=== PATIENT | male | born 1990 ===

== ENCOUNTER 2022-02-12 08:12 | Emergency (ER) | payer OTHER, SELFPAY ==
[2022-02-12 08:18] VITALS: BP 140/88; PULSE 76; RESP 18; TEMP 36.6; O2SAT 98; BMI 25.9
--- NOTE | 2022-02-12 09:09 | ED.GENADULT ---
HPI - General Adult General Chief complaint: General Medical Stated complaint: spider bite Time Seen by Provider: 02/12/22 09:09 Source: patient Mode of arrival: ambulatory Limitations: no limitations History of Present Illness HPI narrative: Patient is a 31 year old male presenting to the emergency department today with a rash to his left torso. Patient states that for the last 3 days he has had a burning rash to his left axilla. Patient states that before this started, he killed a spider and he was worried that it was a bite from that. Patient denies any dizziness, lightheadedness, abdominal pain, nausea, vomiting, fever, chills, blurry vision, double vision, loss of vision, chest pain, difficulty breathing, shortness of breath, back pain, night sweats, pain with urination, increased urinary frequency, increased urinary urgency, blood in his urine or stool, syncope or a near syncopal episode, recent trauma or falls, bowel incontinence, bladder incontinence, bowel retention, bladder retention, or any other complaints at this time. Onset (ago): day(s) (3) Location: chest (left) Radiation: non-radiation Severity: mild Severity scale (1-10): 3 Quality: burning Pain Consistency: constant Relieving factors: none Exacerbating factors: none Associated symptoms: rash Treatments prior to arrival: none Related Data Previous Rx's Medication Instructions Recorded acyclovir 800 mg tablet 800 mg PO 5XD 7 days #35 tabs 02/12/22 Allergies Allergy/AdvReac Type Severity Reaction Status Date / Time No Known Allergies Allergy Unverified 05/19/20 19:20 [No Known Allergies*] Review of Systems Constitutional: Constitutional: Reports no additional constitutional complaints, Denies chills, Denies fever(s) and Denies night sweats Eyes: Eyes: Reports no additional eye complaints, Denies blurry vision, Denies change in vision, Denies diplopia, Denies eye discharge, Denies loss of vision and Denies eye pain ENT: Denies dizziness Cardiovascular: Cardiovascular: Reports no additional cardiovascular complaints, Denies chest pain, Denies lightheadedness, Denies Loss of Consciousness and Denies dyspnea Respiratory: Respiratory: Reports no additional respiratory complaints and Denies dyspnea Gastrointestinal: Gastrointestinal: Reports no additional gastrointestinal complaints, Denies abdominal pain, Denies melena, Denies hematochezia, Denies change in bowel habits and Denies change in stool character Genitourinary: Genitourinary: Reports no additional male genitourinary complaints, Denies hematuria, Denies oliguria, Denies difficulty urinating, Denies dysuria, Denies urinary frequency, Denies urinary hesitancy, Denies urinary incontinence and Denies urinary urgency Musculoskeletal: Musculoskeletal: Reports no additional musculoskeletal complaints, Denies numbness and Denies tingling Integumentary/Breasts: Skin/Breast: Reports rash (left side of torso) Neurologic: Denies dizziness, Denies loss of vision, Denies numbness and Denies tingling Psychiatric: Psychiatric: Reports no additional psychiatric complaints Endocrine: Endocrine: Reports no additional endocrine complaints Hematologic/Lymphatic: Hematologic/Lymphatic: Reports no additional hematologic/lymphatic complaints Allergic/Immunologic: Allergic/Immunologic: Reports no additional allergic/immunologic complaints [facility] Past Medical History Attestation statement: The following information was validated with the patient. Source: old records reviewed Social History Social History Advance Directives: No Advance Directives Information Provided: No Physical Exam ED Vital Signs: Vital Signs - 24 hr 02/12/22 08:18 Temperature 98 F Pulse Rate 76 Respiratory Rate 18 Blood Pressure 140/88 H Pulse Oximetry 98 Oxygen Delivery Method Room Air BMI result Body Mass Index 25.9 Const General: cooperative, no acute distress, alert and awake Nutritional Appearance: well nourished Orientation/consciousness: patient oriented x3 Limitations: no limitations HENMT Head: Yes normal to inspection and Yes atraumatic Ears: hearing grossly normal bilaterally and external ears normal General nose exam: Normal external nose present, no nasal discharge noted and no epistaxis Face and sinus: Yes normal facial exam, No abrasion and No laceration Mouth: Normal oral and palatal mucosa present, no drooling and no muffled voice Eyes General: appearance normal, both eyes and all related structures Periorbital: periorbital findings normal Eyelids: Yes eyelids normal Conjunctivae: conjunctivae normal Pupils: Equal, round and reactive pupils present EOM: EOMs intact bilaterally Neck Neck: Yes normal visual inspection, Yes full ROM and Yes no lymphadenopathy Chest Chest palpation & inspection: normal inspection of the chest Resp Effort & Inspection: normal respiratory effort and able to speak in complete sentences Auscultation: clear to auscultation bilaterally Cardio Rate: regular rate Rhythm: regular rhythm GI Inspection: Yes normal to inspection Skin Other: herpetic type rash to the left axilla, consistent with shingles Neuro General: patient oriented x3 and moves all extremities Cranial nerves: Yes Equal, round and reactive pupils present Cognition (Neuro): normal cognition Motor exam (neuro): 5/5 motor strength present throughout Sensory Exam: Normal double simultaneous stimulation for sensation Coordination: [id number] test normal Extrem General: Yes normal to inspection, Yes full ROM and Yes capillary refill normal Psych Appearance: grossly normal Mental Status: mental status grossly normal Affect: normal affect Attitude: cooperative Thought process: Normal thought process present Thought content: Normal thought content present Insight: Good insight present (Psych) Medical Decision Making MDM Narrative Medical decision making narrative: Patient is a 31 year old male presenting to the emergency department today with a left torso rash. Patient's physical exam showed a shingles type rash to the left axilla but was otherwise unremarkable. I explained my physical exam findings to the patient. I answered all questions asked by the patient. I stressed the importance of the patient taking his medication as prescribed. I stressed the importance of the patient following up with his primary care provider. I stressed the importance of the patient returning to the emergency department immediately if his symptoms were to worsen or if he were to develop any dizziness, shortness of breath, difficulty breathing, chest pain, blurry vision, loss of vision, nausea, vomiting, abdominal pain, fever, chills, back pain, or any other complaints. Patient verbalized agreement and understanding with this treatment plan and discharge. Differential Diagnosis Differential Diagnosis: shingles, rash Medical Records Medical records reviewed: Yes I reviewed the patient's medical records. Discharge Plan Discharge Clinical Impression: Shingles rash Patient Disposition: Home, Self-Care Instructions: Shingles (ED) Additional Instructions: Follow up with your primary care provider. Return to the emergency department immediately if your symptoms worsen or if you develop any dizziness, shortness of breath, difficulty breathing, chest pain, blurry vision, loss of vision, nausea, vomiting, abdominal pain, fever, chills, back pain, or any other complaints. Prescriptions: New acyclovir 800 mg tablet 800 mg PO 5XD 7 Days Qty: 35 0RF Rx Instructions: space evenly during waking hours Referrals: [facility] [Provider Group] (Call to establish and follow up with a primary care provider. If you already have a primary care provider, call and follow up with them. ) [facility] [Provider Group] (Call to establish and follow up with a primary care provider. If you already have a primary care provider, call and follow up with them. ) [facility] [Provider Group] (Call to establish and follow up with a primary care provider. If you already have a primary care provider, call and follow up with them. ) Stand Alone Forms: Work/School Release Print Language: Bengali
== END 2022-02-12 09:37 | disposition home or self-care (01) ==
PROVIDERS: Emergency Provider Emergency Medicine
DX: B02.9 Zoster without complications (principal)
CPT/HCPCS: 99283

== ENCOUNTER 2023-12-17 12:39 | Emergency (ER) | payer MEDICAID, SELFPAY ==
[2023-12-17 13:14] VITALS: BP 127/90; PULSE 68; RESP 16; TEMP 36.4; O2SAT 98; BMI 26.2
--- NOTE | 2023-12-17 13:19 | ED.MALEGU ---
HPI - Male Genitourinary General Chief complaint: Urogenital-Male Stated complaint: Hemorrhoid Time Seen by Provider: 12/17/23 13:19 Source: patient, RN notes reviewed and old records reviewed Mode of arrival: ambulatory Limitations: no limitations History of Present Illness HPI Narrative: 32-year-old male presents for evaluation of rectal pain. Patient believes that he has hemorrhoids He has never had these in the past. He reports rectal pain with bowel movements and for standing for long periods. He has been using preparation H with some improvement Denies any rectal bleeding He does not feel constipated He feels a bump near his buttocks Related Data Previous Rx's ?Medication ?Instructions ?Recorded acyclovir 800 mg tablet 800 mg PO 5XD 7 days #35 tabs 02/12/22 hydrocortisone 2.5 % topical cream 1 appl SD BID PRN hemorrhoids 7 12/17/23 with perineal applicator days #30 grams (Anusol-HC) polyethylene glycol 3350 17 17 g PO DAILY 2 weeks #238 grams 12/17/23 gram/dose oral powder (Miralax) Allergies Allergy/AdvReac Type Severity Reaction Status Date / Time No Known Allergies Allergy Verified 12/17/23 13:16 [No Known Allergies*] Review of Systems Gastrointestinal: Gastrointestinal: Denies hematochezia Comments: Reports rectal pain PMFSH Social History Social History Advance Directives: No Physical Exam Vital Signs: Vital Signs: Last Vital Signs Temp 97.6 F 12/17/23 13:14 Pulse 68 12/17/23 13:14 Resp 16 12/17/23 13:14 BP 127/90 H 12/17/23 13:14 Pulse Ox 98 12/17/23 13:14 O2 Del Method Room Air 12/17/23 13:14 BMI result Body Mass Index 26.2 Const: General: healthy appearing, comfortable, no acute distress, alert and awake Nutritional Appearance: well nourished Orientation/consciousness: patient oriented x3 Eyes: Eyelids: Yes eyelids normal Conjunctivae: conjunctivae normal Sclerae: sclerae normal Corneas: corneas normal Pupils: Equal, round and reactive pupils present EOM: EOMs intact bilaterally Neck: Neck: Yes full ROM Resp: Effort & Inspection: normal respiratory effort, able to speak in complete sentences and not labored GI: Other: Patient has 2 separate hemorrhoids, 1 at the 11 o'clock position and 1 at the 4 o'clock position. No active bleeding, appear nonthrombosed Skin: General skin exam: elasticity normal Neuro: General: patient oriented x3 Cranial nerves: Yes Equal, round and reactive pupils present and Yes Bilaterally intact EOM present Cognition (Neuro): normal cognition Medical Decision Making Medical Decision Making MDM Narrative: Patient appears to have simple external hemorrhoids. We will treat with MiraLax, Anusol. He was also given education Differential Diagnosis Differential Diagnoses: The differential diagnosis associated with the presentation includes Internal hemorrhoid External hemorrhoid Abscess Pilonidal cyst Discharge Plan Discharge Clinical Impression: External hemorrhoid Patient Disposition: Home, Self-Care Instructions: Hemorrhoids (ED) Additional Instructions: Use Anusol treatment twice daily for 1 week Take MiraLax every night for the next 2 weeks Drink lots of water and increase fiber intake in your diet I recommend that you by a Sitz bath from the pharmacy and soak in warm water with Epsom salt once daily You may follow-up with general surgery, Dr. Lin if your symptoms persist Prescriptions: New hydrocortisone [Anusol-HC] 2.5 % cream with perineal applicator 1 appl SD BID PRN (Reason: hemorrhoids) 7 Days Qty: 30 0RF polyethylene glycol 3350 [Miralax] 17 gram/dose powder 17 g PO DAILY 14 Days Qty: 238 0RF No Action acyclovir 800 mg tablet 800 mg PO 5XD 7 Days Qty: 35 0RF Rx Instructions: space evenly during waking hours Referrals: Zayda Desai MD [Physician] - (External hemorrhoids) Discharge Date/Time: 12/17/23 13:42 Print Language: [place]
== END 2023-12-17 13:42 | disposition home or self-care (01) ==
LOC: HO.ED 13:26
PROVIDERS: Emergency Provider Emergency Medicine
DX: K64.4 Residual hemorrhoidal skin tags (principal)
CPT/HCPCS: 99281